=== PATIENT | male | born 1935 | race Caucasian/White ===

== ENCOUNTER 2020-09-21 19:24 | Observation (INO) | payer OTHER ==
[2020-09-21 21:05] LABS: HEMATOCRIT 39.3 % (35.4-49); HEMOGLOBIN 13.5 GM/dl (11.7-16.9); MCH 31.6 pg (25.7-33.7); MCHC 34.4 g/dl (32.0-35.9); MEAN PLT VOLUME 10.2 fl (7.5-11.1); PLATELET COUNT 139 10^3/uL (134-434); RBC 4.26 M/mm3 (4.00-5.60); RDW 14.6 % (11.9-15.9)
[2020-09-21 21:11] LABS: WHITE BLOOD COUNT 36.1 K/mm3 (4.0-10.8)
[2020-09-21 21:24] LABS: ALBUMIN 3.8 g/dl (3.4-5.0); ALK PHOS 70 U/L (45-117); ANION GAP 11 MMOL/L (8-16); CHLORIDE 101 mmol/L (98-107); CO2 24 mmol/L (21-32); CREATININE 0.9 mg/dl (0.55-1.3); GLUCOSE,RANDOM 103 mg/dl (74-106); SGOT/AST 23 U/L (15-37); SGPT/ALT 15 U/L (13-61); SODIUM 136 mmol/L (136-145); TOT PROT 7.1 g/dl (6.4-8.2)
[2020-09-21 21:40] LABS: PLATELET ESTIMATE ADEQUATE
[2020-09-21] MEDS ORDERED: SODIUM CHLORIDE 1,000 ML IV SCH (23:15)
[2020-09-21] MEDS ORDERED: KETOROLAC TROMETHAMINE 15 MG/ML VIAL IVPUSH ONE (23:17)
[2020-09-21] MEDS ORDERED: KETOROLAC TROMETHAMINE 15 MG/ML VIAL ONE (23:22)
[2020-09-22] MEDS ORDERED: ACETAMINOPHEN 500 MG TABLET (FP) PO PRN (03:07)
[2020-09-22 03:36] VITALS: BMI 21.2
[2020-09-22] MEDS ORDERED: KETOROLAC TROMETHAMINE 15 MG/ML VIAL IVPUSH PRN (06:00)
[2020-09-22] MEDS: GABAPENTIN 300 MG CAPSULE PO SCH ×3 (06:02→22:02)
[2020-09-22] MEDS: TAMSULOSIN HCL 0.4 MG CAP PO SCH (08:58)
[2020-09-22] MEDS: ENOXAPARIN NA (PORCINE) 40 MG/0.4 ML DISP.SYRIN SQ SCH (09:02)
[2020-09-22] MEDS: FLUoxetine HCL 10 MG CAPSULE PO SCH (09:02)
[2020-09-22] MEDS: PANTOPRAZOLE 40 MG TABLET PO SCH (09:02)
[2020-09-22] MEDS ORDERED: MECLIZINE HCL 25 MG TABLET (FP) PO SCH (18:00)
[2020-09-23] MEDS: GABAPENTIN 300 MG CAPSULE PO SCH (05:53)
[2020-09-23 07:39] LABS: HEMATOCRIT 39.5 % (35.4-49); HEMOGLOBIN 12.8 GM/dl (11.7-16.9); MCH 29.8 pg (25.7-33.7); MCHC 32.4 g/dl (32.0-35.9); MEAN CELL VOLUME 92.1 fl (80-96); PLATELET COUNT 145 10^3/uL (134-434); RBC 4.29 M/mm3 (4.00-5.60); RDW 14.9 % (11.9-15.9); WHITE BLOOD COUNT 33.9 K/mm3 (4.0-10.8)
[2020-09-23 07:51] LABS: CALCIUM 8.8 mg/dl (8.5-10); CREATININE 0.9 mg/dl (0.55-1.3); MAGNESIUM 1.8 mg/dL (1.8-2.4)
[2020-09-23] MEDS: ENOXAPARIN NA (PORCINE) 40 MG/0.4 ML DISP.SYRIN SQ SCH (09:25)
[2020-09-23] MEDS: TAMSULOSIN HCL 0.4 MG CAP PO SCH (09:26)
[2020-09-23] MEDS: PANTOPRAZOLE 40 MG TABLET PO SCH (09:26)
[2020-09-23] MEDS: FLUoxetine HCL 10 MG CAPSULE PO SCH (09:26)
[2020-09-23 09:31] VITALS: BP 117/60; PULSE 71; TEMP 98.3
== END 2020-09-23 13:06 | disposition home or self-care (01) ==
LOC: FER 19:24 → FM/S 09-22 02:35 → UNDOADMOB 09-22 02:35 → INTOOBSV 09-22 02:35 → FM/S 09-22 13:07
PROVIDERS: ADMIT Hospitalist; ATTEND Nurse Practitioner Acute Care
PROC: 3E023GC Introduction of Other Therapeutic Substance into Muscle, Percutaneous Approach (ICD-10-PCS; principal; 2020-09-22)
PROC: 3E0333Z Introduction of Anti-inflammatory into Peripheral Vein, Percutaneous Approach (ICD-10-PCS; 2020-09-22)
DX: E86.0 Dehydration (principal); R62.7 Adult failure to thrive; J44.9 Chronic obstructive pulmonary disease, unspecified; K21.9 Gastro-esophageal reflux disease without esophagitis; I10 Essential (primary) hypertension; C91.10 Chronic lymphocytic leukemia of B-cell type not having achieved remission; G20 Parkinson's disease; N40.0 Benign prostatic hyperplasia without lower urinary tract symptoms; F17.210 Nicotine dependence, cigarettes, uncomplicated; Z29.9 Encounter for prophylactic measures, unspecified; Z88.8 Allergy status to other drugs, medicaments and biological substances
CPT/HCPCS: 36415; 71045-TC-FY; 80048; 80053; 81003; 82550; 83735; 84443; 84484; 85025; 93005; 96361; 96374; 97116-GP; 97162-GP; 99285-25; C9803; G0378; U0003; U0005